=== PATIENT | male | born 1955 ===

== ENCOUNTER 2025-08-31 05:17 | Emergency (ER) | payer OTHER ==
[~2025-08-31] VITALS: Ht 185.4 cm; Wt 92.5 kg
[2025-08-31 05:48] LABS: BASOPHILS 1.0 % (0.2-1.2); EOSINOPHILS 3.2 % (0.8-7.0); LYMPHOCYTES 21.4 % (21.8-53.1); MCH 30.6 PG (25.7-32.2); MCHC 33.5 g/dL (32.3-36.5); MCV 91.2 fL (79.0-92.2); MONOCYTES 8.1 % (5.3-12.2); NEUTROPHILS 65.9 % (34.0-67.9); RBC 4.32 M/uL (4.63-6.08)
[2025-08-31] MEDS ORDERED: DEXAMETHASONE SOD PHOS 10 MG/ML VIAL IV ONE (06:00)
[2025-08-31] MEDS ORDERED: FAMOTIDINE 20 MG/ 2 ML VIAL IV ONE (06:00)
[2025-08-31] MEDS ORDERED: DEXAMETHASONE SOD PHOS 10 MG/ML VIAL IM ONE (06:00)
[2025-08-31 06:01] LABS: ALT (SGPT) 19.0 U/L (14-59); AST (SGOT) 19.0 U/L (15-37); GLOMERULAR FILTRATION RATE,EST 97.0 mL/min (>60); PROTEIN, TOTAL 7.7 g/dL (6.4-8.2); UREA NITROGEN 13.0 mg/dL (7-18)
[2025-08-31 06:13] LABS: PHOSPHORUS, INORGANIC 3.6 mg/dL (2.5-4.9)
[2025-08-31] MEDS ORDERED: VENTOLIN HFA18 GM INH (06:23)
[2025-08-31] MEDS ORDERED: PERCOCET 5-3251 EACH PO (06:24)
[2025-08-31] MEDS ORDERED: METFORMIN HCL500 MG PO (06:25)
[2025-08-31] MEDS ORDERED: PLAQUENIL200 MG PO (06:25)
[2025-08-31] MEDS ORDERED: XARELTO20 MG PO (06:25)
[2025-08-31] MEDS ORDERED: WIXELA 250-501 EACH INH (06:26)
[2025-08-31] MEDS ORDERED: SPIRIVA RESPIMAT4 GM INH (06:26)
[2025-08-31] MEDS ORDERED: JARDIANCE10 MG PO (06:27)
[2025-08-31] MEDS ORDERED: LIPITOR40 MG PO (06:28)
[2025-08-31] MEDS ORDERED: VITAMIN D325 MC2 PO (06:28)
[2025-08-31] MEDS ORDERED: METOPROLOL SUCC25 MG PO (06:29)
[2025-08-31] MEDS ORDERED: TRIAMCINOLONE A15 G1 TOP (06:29)
[2025-08-31 07:46] LABS: BLOOD/HGB, URINE NEGATIVE (Negative); KETONE, URINE NEGATIVE (Negative); LEUK ESTERASE, URINE NEGATIVE (negative); NITRITE, URINE NEGATIVE (negative)
[2025-08-31 08:17] LABS: AMPHETAMINES, URINE NEGATIVE (NEGATIVE); BARBITURATES, URINE NEGATIVE (NEGATIVE); BENZODIAZEPINE, URINE NEGATIVE (NEGATIVE); CANNABINOID, URINE NEGATIVE (NEGATIVE); COCAINE, URINE NEGATIVE (NEGATIVE); ECSTASY, URINE NEGATIVE (NEGATIVE); FENTANYL, URINE NEGATIVE (NEGATIVE); METHADONE, URINE NEGATIVE (NEGATIVE); OPIATES, URINE NEGATIVE (NEGATIVE); OXYCODONE, URINE POSITIVE (NEGATIVE); PHENCYCLIDINE, URINE NEGATIVE (NEGATIVE)
[2025-08-31 09:38] VITALS: BP 142/84
--- NOTE | 2025-09-02 18:14 | EKG ---
[facility] [address] [place], [place] [address] Signed Sinus bradycardia with 1st degree AV block Right bundle branch block Left anterior fascicular block Bifascicular block Abnormal ECG No previous ECGs available Confirmed by Leonela Ahn MD () on 09/02/2025 6:14:19 PM Electronically Signed By: LEONELA AHN MD 09/02/25 181 PATIENT NAME: ALICJA RAMIREZ NORMA Electrocardiogram DATE OF : 57 PHYSICIAN: LEONELA AHN MD REPORT #: [id number] REPORT IS CONFIDENTIAL AND NOT TO BE RELEASED WITHOUT AUTHORIZATION
== END 2025-08-31 09:38 | disposition home or self-care (01) ==
LOC: ED 05:17
PROVIDERS: Internal Medicine
DX: M32.9 Systemic lupus erythematosus, unspecified (principal); R21 Rash and other nonspecific skin eruption; Z79.899 Other long term (current) drug therapy; Z79.51 Long term (current) use of inhaled steroids
CPT/HCPCS: 36415; 70450; 70496; 70498; 71045; 80053; 80307; 81003; 83036; 83735; 84100; 84484; 84550; 85025; 85651; 86140; 93005; 93010; 96374; 96375; 99285-25; J1100; J1200; Q9967